=== PATIENT | male | born 1940 | race Hispanic/Latino ===

== ENCOUNTER 2017-11-11 14:36 | Outpatient (CLI) | payer MEDICARE ==
--- NOTE | 2017-11-11 16:08 | RAD ---
LEFT SHOULDER 3 VIEWS: DATE: 11/11/17. COMPARISON: None. HISTORY: Left shoulder pain. FINDINGS: There is inferior osteophyte formation involving the acromion. There is degenerative change of the l eft AC joint with joint space narrowing and osteophyte formation. No widening of the AC or CC inters pace is noted. There is no displaced fracture or dislocation noted. IMPRESSION: Degenerative joint disease. No acute fracture or dislocation. POS: ALBER
== END 2017-11-11 14:37 | disposition home or self-care (01) ==
LOC: NAV RAD 14:36
PROVIDERS: ATTEND Family Medicine
DX: M75.102 Unspecified rotator cuff tear or rupture of left shoulder, not specified as traumatic (principal); M19.012 Primary osteoarthritis, left shoulder

== ENCOUNTER 2020-03-17 17:04 | Emergency (ER) | payer MEDICARE, OTHER ==
[2020-03-17] MEDS ORDERED: Acetaminophen 500 MG TAB ONE (17:27)
[2020-03-17 18:22] LABS: #Basophils 0.1 thou/uL (0.0-0.2); #Lymphocytes 0.8 thou/uL (1.20-3.40); #Monocytes 0.9 thou/uL (0.11-0.59); #Neutrophils 13.8 thou/uL (1.40-6.50); %Basophils 0.5 % (0.0-1.0); %Eosinophils 0.1 % (0.0-10.0); %Lymphocytes 5.3 % (21.0-51.0); %Monocytes 5.5 % (0.0-10.0); %Neutrophils 88.7 % (42.0-75.0); Hemoglobin 11.8 g/dL (14.0-18.0); Mean Corpuscular HGB CONC 32.8 g/dL (32.0-36.0); Mean Corpuscular Hemoglobin 31.5 pg (27.0-31.0); Mean Corpuscular Volume 95.9 fL (78.0-98.0); Mean Platelet Volume 8.6 fL (7.4-10.4); Platelet Count 199 thou/uL (130-400); RBC Distribution Width 11.6 % (11.5-14.5); Red Blood Cell (RBC) Count 3.76 mill/uL (4.70-6.10); White Blood Cell (WBC) Count 15.6 thou/uL (4.8-10.8)
[2020-03-17 18:36] LABS: ALT (SGPT) 13 U/L (8-55); AST (SGOT) 16 U/L (5-34); Albumin 3.8 g/dL (3.4-4.8); Alkaline Phosphatase 94 U/L (40-110); Anion Gap 15 mmol/L (10-20); BUN (Urea Nitrogen) 17 mg/dL (8.4-25.7); Bilirubin, Total 0.4 mg/dL (0.2-1.2); Calc. Creatinine Clearance 0 mL/min (70-130); Calcium 8.9 mg/dL (7.8-10.44); Carbon Dioxide 21 mmol/L (23-31); Chloride 99 mmol/L (98-107); Estimated GFR-MDRD 70; Globulin 3.4 g/dL (2.4-3.5); Glucose 208 mg/dL (83-110); Potassium 4.8 mmol/L (3.5-5.1); Protein, Total 7.2 g/dL (5.8-8.1); Sodium 130 mmol/L (136-145)
--- NOTE | 2020-03-17 18:40 | CT ---
CT Brain WO Con: 03/17/2020 5:46 PM CLINICAL HISTORY: History of COVID symptoms. IMAGING TECHNIQUE: Multiple CT images were obtained of the brain without IV contrast. COMPARISON: September 12, 2019 FINDINGS: Brain: No acute infarct or hemorrhage is evident. No midline shift. 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 There is generalized cerebral atrophy. Remote lacunar infarct involving the right thalamus is stable appearing . Mild chronic small vessel white matter ischemic changes stable appearing. Ventricles: Normal. No hydrocephalus. Skull: Intact. Visualized Paranasal sinuses: Clear. Mastoid air cells:Clear. Extracranial soft tissues:There is a stable left scleral buckle and left orbital implant. IMPRESSION: No acute intracranial abnormality.
--- NOTE | 2020-03-17 19:01 | RAD ---
Chest AP view INDICATION: Suspicious for coronavirus infection; COVID 19 infection COMPARISON: No chest comparisons are available. Comparison with a left shoulder radiograph dated 2017. FINDINGS: Lungs: The lungs are clear Cardiac silhouette: There is mild cardiomegaly Pulmonary vasculature: Normal Pleural spaces: No pleural effusion or pneumothorax is demonstrated. Upper abdomen: No abnormality seen. Osseous structures: No acute osseous abnormality. There is scattered degenerative and osteoarthritic change present. Additional findings: No abnormality IMPRESSION: Mild cardiomegaly. No radiographic features specific for COVID 19 infection.
[2020-03-17 19:23] LABS: Bilirubin Negative (Negative); Blood, Urine Small (Negative); Clarity Clear (Clear); Glucose, Urine (Dipstick) Negative (Negative); Leukocyte Moderate (Negative); Nitrite Negative (Negative); Protein, Urine (Dipstick) 100 mg/dL (Neg-Trace)
[2020-03-17 19:32] LABS: Bacteria/HPF 3+ HPF (None Seen); RBC/HPF 0-3 HPF (0-3); Squamous Epithelial 0-3 HPF (0-3); WBC/HPF 21-50 HPF (0-3)
[2020-03-17] MEDS ORDERED: Cephalexin 250 MG CAP ONE (19:41)
[2020-03-18 10:43] LABS: SARS-CoV-2 MS2 Positive; SARS-CoV-2 N Gene Negative; SARS-CoV-2 S Gene Negative; SARS-CoV-2 orf1ab Negative
== END 2020-03-17 20:07 | disposition home or self-care (01) ==
LOC: NAV ERS 17:04
DX: N12 Tubulo-interstitial nephritis, not specified as acute or chronic (principal); E87.1 Hypo-osmolality and hyponatremia; R50.9 Fever, unspecified; Z20.828 Contact with and (suspected) exposure to other viral communicable diseases; I10 Essential (primary) hypertension; E11.39 Type 2 diabetes mellitus with other diabetic ophthalmic complication; E78.00 Pure hypercholesterolemia, unspecified; Z79.84 Long term (current) use of oral hypoglycemic drugs; Z79.899 Other long term (current) drug therapy
CPT/HCPCS: 70450; 71045; 80053; 82962; 83605; 83880; 84484; 85025; 87040; 87077; 87086; 87186; 93005; 99285; U0003; 36416; 81003; 81015; 87635

== ENCOUNTER 2020-10-20 12:04 | Emergency (ER) | payer MEDICARE ==
[2020-10-20] MEDS ORDERED: Acetaminophen 500 MG TAB ONE (12:46)
--- NOTE | 2020-10-20 13:16 | CT ---
CT BRAIN WITHOUT CONTRAST: Date: 10/20/2020 HISTORY: Headache and ringing in the ears after falling last night at 9:00 p.m.. No loss of consciousness. COMPARISON: 03/17/2020. FINDINGS: Changes of cortical atrophy and chronic small vessel ischemic disease again seen. The ventricular siz e is stable and the basilar cisterns are patent. No evidence of acute infarct, hemorrhage, midline shift, or abnormal extra-axial fluid collections ar e seen. The bony calvarium is intact. The visualized paranasal sinuses and mastoid air cells are well aerated. The left orbital implant and scleral buckle are stable. IMPRESSION: Stable exam. No CT evidence of acute intracranial process. POS: AH
--- NOTE | 2020-10-20 13:17 | RAD ---
LEFT SHOULDER 3 VIEWS: Date: 10/20/2020 HISTORY: Trauma. Left shoulder pain. FINDINGS/IMPRESSION: Comparison made with exam of 11/11/2019. Degenerative changes are again seen. No acute fracture or dislocation identified. POS: AH
--- NOTE | 2020-10-20 13:18 | CT ---
CT CERVICAL SPINE WITHOUT CONTRAST: Date: 10/20/2020 HISTORY: Fall. Neck pain. 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 No acute fracture, subluxation, or facet malalignment is identified. POS: AH
== END 2020-10-20 14:15 | disposition home or self-care (01) ==
LOC: NAV ERS 12:04
DX: S46.912A Strain of unspecified muscle, fascia and tendon at shoulder and upper arm level, left arm, initial encounter (principal); S00.83XA Contusion of other part of head, initial encounter; I10 Essential (primary) hypertension; E11.9 Type 2 diabetes mellitus without complications; E78.00 Pure hypercholesterolemia, unspecified; Z79.84 Long term (current) use of oral hypoglycemic drugs; Z79.899 Other long term (current) drug therapy; W01.0XXA Fall on same level from slipping, tripping and stumbling without subsequent striking against object, initial encounter
CPT/HCPCS: 70450; 72125

== ENCOUNTER 2022-01-08 14:25 | Outpatient (CLI) | payer MEDICARE | END 2022-01-08 14:26 | disposition home or self-care (01) | LOC: NAV RAD 14:25 | PROVIDERS: ATTEND Family Medicine | DX: M17.11 Unilateral primary osteoarthritis, right knee (principal) ==

== ENCOUNTER 2024-12-03 10:18 | Outpatient (CLI) | payer OTHER | END 2024-12-03 10:19 | disposition home or self-care (01) | LOC: NAV RAD 10:18 | PROVIDERS: ATTEND Student in an Organized Health Care Education/Training Program | DX: M17.0 Bilateral primary osteoarthritis of knee (principal) ==